=== PATIENT | female | born 1990 | race African-American/Black ===

== ENCOUNTER 2019-10-13 14:49 | Emergency (ER) | payer OTHER ==
[~2019-10-13] VITALS: Ht 152.4 cm; Wt 59.0 kg
[2019-10-13 14:58] VITALS: BP 130/82
== END 2019-10-13 17:59 | disposition left against medical advice (07) ==
LOC: ER 14:49 → EDBD 14:49 → ER 17:59
DX: M25.532 Pain in left wrist (principal); Z53.21 Procedure and treatment not carried out due to patient leaving prior to being seen by health care provider; V43.52XA Car driver injured in collision with other type car in traffic accident, initial encounter; Y93.89 Activity, other specified; Y92.488 Other paved roadways as the place of occurrence of the external cause; Y99.8 Other external cause status
CPT/HCPCS: 73110